=== PATIENT | male | born 1960 | race African-American/Black ===

== ENCOUNTER 2017-01-17 00:43 | Emergency (ER) | payer MEDICAID ==
[~2017-01-17] VITALS: Ht 175.3 cm; Wt 72.5 kg
[~2017-01-17 00:43] MED LIST: HYDR-3965 PO
[2017-01-17] MEDS ORDERED: BACITRACIN 0.9 GM PACKET OINTMENT TP ONE (02:00)
[2017-01-17] MEDS ORDERED: ACETAMINOPHEN 500 MG TABLET PO ONE (02:00)
[2017-01-17 02:49] VITALS: BP 116/74
== END 2017-01-17 02:54 | disposition home or self-care (01) ==
LOC: EMS 00:44
DX: M79.671 Pain in right foot (principal); M79.672 Pain in left foot; R23.8 Other skin changes; J40 Bronchitis, not specified as acute or chronic; F17.210 Nicotine dependence, cigarettes, uncomplicated; Z88.0 Allergy status to penicillin
CPT/HCPCS: 99283; 99406

== ENCOUNTER 2017-07-13 04:37 | Emergency (ER) | payer MEDICAID ==
[~2017-07-13] VITALS: Ht 172.7 cm; Wt 72.0 kg
[2017-07-13] MEDS ORDERED: RISP.5 PO (04:43)
[2017-07-13] MEDS ORDERED: ALBU8.5H8 IH (04:43)
[2017-07-13] MEDS ORDERED: BACITRACIN 0.9 GM PACKET OINTMENT TP ONE (05:00)
[2017-07-13] MEDS ORDERED: KETOROLAC TROMETHAMINE 60 MG/2 ML VIAL IM ONE (05:00)
[2017-07-13 06:04] VITALS: BP 131/72
== END 2017-07-13 06:07 | disposition home or self-care (01) ==
LOC: EMS 04:38
DX: S90.822A Blister (nonthermal), left foot, initial encounter (principal); S90.821A Blister (nonthermal), right foot, initial encounter; M54.5 Low back pain; G89.29 Other chronic pain; F17.210 Nicotine dependence, cigarettes, uncomplicated; Z59.0 Homelessness; Z88.0 Allergy status to penicillin; X58.XXXA Exposure to other specified factors, initial encounter; Y93.89 Activity, other specified; Y92.89 Other specified places as the place of occurrence of the external cause; Y99.8 Other external cause status
CPT/HCPCS: 96372; 99283; 99406; J1885

== ENCOUNTER 2017-08-17 01:30 | Emergency (ER) | payer MEDICAID ==
[~2017-08-17] VITALS: Ht 175.3 cm; Wt 70.5 kg
[~2017-08-17 01:30] MED LIST changes: +ALBU8.5H8 IH; -HYDR-3965 PO; +RISP.5 PO
[2017-08-17 03:06] VITALS: BP 151/72
[2017-08-17] MEDS ORDERED: IBUPROFEN 600 MG TABLET PO ONE (03:30)
== END 2017-08-17 03:34 | disposition home or self-care (01) ==
LOC: EMS 01:31
DX: S20.212A Contusion of left front wall of thorax, initial encounter (principal); F17.210 Nicotine dependence, cigarettes, uncomplicated; Z88.0 Allergy status to penicillin; Y93.39 Activity, other involving climbing, rappelling and jumping off; Y93.89 Activity, other specified; Y92.89 Other specified places as the place of occurrence of the external cause; Y99.8 Other external cause status
CPT/HCPCS: 71100; 99284; 99406

== ENCOUNTER 2018-11-03 09:34 | Emergency (ER) | payer MEDICAID ==
[~2018-11-03] VITALS: Ht 160 cm; Wt 83.2 kg
[2018-11-03 10:58] VITALS: BP 135/79
== END 2018-11-03 11:14 | disposition home or self-care (01) ==
LOC: EMS 09:34
DX: M79.81 Nontraumatic hematoma of soft tissue (principal); F17.210 Nicotine dependence, cigarettes, uncomplicated; F14.90 Cocaine use, unspecified, uncomplicated; G89.29 Other chronic pain; Z88.0 Allergy status to penicillin
CPT/HCPCS: 93971

== ENCOUNTER 2019-02-28 15:28 | Emergency (ER) | payer MEDICAID ==
[~2019-02-28] VITALS: Ht 177.8 cm; Wt 75.0 kg
[2019-02-28 16:00] VITALS: BP 118/74
[2019-02-28] MEDS ORDERED: LIDOCAINE 5% TRANSDERMAL PATCH TD ONE (16:15)
[2019-02-28] MEDS ORDERED: KETOROLAC TROMETHAMINE 30 MG/ML VIAL IM ONE (16:15)
== END 2019-02-28 16:39 | disposition home or self-care (01) ==
LOC: EMS 15:29
DX: M54.5 Low back pain (principal); G89.29 Other chronic pain; M79.671 Pain in right foot; F17.210 Nicotine dependence, cigarettes, uncomplicated; F14.90 Cocaine use, unspecified, uncomplicated; Z88.0 Allergy status to penicillin
CPT/HCPCS: 96372; 99283; 99406; J1885

== ENCOUNTER 2020-07-29 12:58 | Emergency (ER) | payer MEDICAID ==
[~2020-07-29] VITALS: Ht 175.3 cm; Wt 77.3 kg
[~2020-07-29 12:58] MED LIST changes: -RISP.5 PO; +RISP0.5T39 PO
[2020-07-29 14:00] VITALS: BP 126/69
== END 2020-07-29 14:03 | disposition home or self-care (01) ==
LOC: EMS 13:00
DX: L02.31 Cutaneous abscess of buttock (principal); F17.210 Nicotine dependence, cigarettes, uncomplicated; F14.90 Cocaine use, unspecified, uncomplicated; J40 Bronchitis, not specified as acute or chronic; Z88.0 Allergy status to penicillin; Z79.899 Other long term (current) drug therapy

== ENCOUNTER 2020-08-01 23:32 | Emergency (ER) | payer MEDICAID ==
[~2020-08-01] VITALS: Ht 175.3 cm; Wt 75.0 kg
[2020-08-02 01:44] VITALS: BP 119/76
[2020-08-02] MEDS ORDERED: SULFAMETHOX/TRIMETH DS 800-160 MG/TABLET PO ONE (02:00)
== END 2020-08-02 02:30 | disposition home or self-care (01) ==
LOC: EMS 23:32
DX: L02.31 Cutaneous abscess of buttock (principal); F17.210 Nicotine dependence, cigarettes, uncomplicated; F14.90 Cocaine use, unspecified, uncomplicated; G89.29 Other chronic pain; Z88.0 Allergy status to penicillin

== ENCOUNTER 2021-02-12 03:44 | Emergency (ER) | payer MEDICAID ==
[~2021-02-12] VITALS: Ht 175.3 cm; Wt 72.7 kg
[2021-02-12 04:57] LABS: BASOPHILS % (AUTO) 0.5 % (0.0-2.0); EOSINOPHILS % (AUTO) 1.2 % (1.0-6.0); HEMATOCRIT 35.7 % (41-53); HEMOGLOBIN 11.9 g/dL (13.5-17.5); LYMPHOCYTES # (AUTO) 0.7 K/uL (1.0-4.8); LYMPHOCYTES % (AUTO) 12.8 % (22.0-44.0); MEAN CORPUSCULAR HEMOGLOBIN 30.9 pg (26.0-34.0); MEAN CORPUSCULAR HGB CONC 33.4 G/dL (31.0-37.0); MEAN CORPUSCULAR VOLUME 93 fL (80-100); MONOCYTES # (AUTO) 0.5 K/uL (0.1-1.0); MONOCYTES % (AUTO) 9.2 % (2.0-9.0); NEUTROPHILS # (AUTO) 4.1 K/uL (1.8-7.7); NEUTROPHILS % (AUTO) 76.3 % (40.0-70.0); PLATELET COUNT (AUTO) 284 K/uL (150-450); RED BLOOD CELL COUNT(AUTO) 3.86 MIL/uL (4.50-5.90); RED CELL DISTRIBUTION WIDTH 13.6 % (11.5-14.5)
[2021-02-12 05:00] LABS: INR 1.1 (0.9-1.1); PROTHROMBIN TIME 11.8 SEC (9.4-11.6)
[2021-02-12 05:04] VITALS: BP 119/69
[2021-02-12 05:28] LABS: ANION GAP 8 mmol/L (8-16); CALCIUM, TOTAL 8.6 mg/dL (8.8-10.5); CARBON DIOXIDE 28 mmol/L (22-29); CHLORIDE 106 mmol/L (98-107); GLOMERULAR FILTR. RATE CALC > 60 mL/min (>60); GLUCOSE,RANDOM 110 mg/dL (70-110); POTASSIUM 4.2 mmol/L (3.5-5.1); SODIUM SERUM 142 mmol/L (136-145); UREA NITROGEN, BLOOD 22 mg/dL (7-18)
[2021-02-12 05:34] LABS: ALANINE AMINOTRANSFERASE 20 U/L (12-78); ALBUMIN 3.1 g/dL (3.4-5.0); ALKALINE PHOSPHATASE 84 U/L (46-116); ASPARTATE AMINOTRANSFERASE 19 U/L (15-37); BILIRUBIN,TOTAL 0.5 mg/dL (0.1-1.0); LIPASE 67 U/L (73-393); TOTAL PROTEIN, SERUM 7.2 g/dL (6.4-8.2)
== END 2021-02-12 06:21 | disposition home or self-care (01) ==
LOC: EMS 03:45
DX: R10.31 Right lower quadrant pain (principal); R10.32 Left lower quadrant pain; G89.29 Other chronic pain; F17.210 Nicotine dependence, cigarettes, uncomplicated; F14.90 Cocaine use, unspecified, uncomplicated; Z88.0 Allergy status to penicillin
CPT/HCPCS: 74176; 80053; 83690; 85025; 85610; 99284

== ENCOUNTER 2021-12-11 19:36 | Emergency (ER) | payer MEDICAID ==
[~2021-12-11] VITALS: Ht 175.3 cm; Wt 77.3 kg
[2021-12-11] MEDS ORDERED: KETOROLAC TROMETHAMINE 30 MG/ML VIAL IM ONE (20:30)
[2021-12-11 21:10] VITALS: BP 122/73
== END 2021-12-11 22:30 ==
LOC: EMS 19:36
DX: G89.29 Other chronic pain (principal); M54.50 Low back pain, unspecified; F17.210 Nicotine dependence, cigarettes, uncomplicated; F14.90 Cocaine use, unspecified, uncomplicated
CPT/HCPCS: 72100; 96372; 99283; J1885

== ENCOUNTER 2023-01-05 08:22 | Emergency (ER) | payer MEDICAID ==
[~2023-01-05] VITALS: Ht 175.3 cm; Wt 77.3 kg
[2023-01-05] MEDS ORDERED: DOXY-354 PO (12:22)
[2023-01-05] MEDS ORDERED: IBUP-1492 PO (12:33)
[2023-01-05 12:35] VITALS: BP 112/60
== END 2023-01-05 12:45 | disposition home or self-care (01) ==
LOC: EMS 08:23
DX: F17.210 Nicotine dependence, cigarettes, uncomplicated (principal); G89.29 Other chronic pain; M54.9 Dorsalgia, unspecified; Z98.890 Other specified postprocedural states; Z88.0 Allergy status to penicillin
CPT/HCPCS: 70450; 70486; 72125; 99284